=== PATIENT | male | born 1995 | race Caucasian/White ===

== ENCOUNTER → 2018-01-26 16:01 | Outpatient (CLI) | payer BC, SELFPAY ==
[2018-01-26 17:39] LABS: ALB/GLOB Ratio 1.1 RATIO (0.9-2.4); AST(SGOT) 9 U/L (15-37); Alanine Aminotransfer ALT/SGPT 15 U/L (16-61); Alkaline Phosphatase 62 U/L (45-117); Anion Gap 6 (5-15); BUN 6 mg/dL (7-18); BUN/Creat Ratio 8.1 RATIO (10-20); Calcium,Total 8.8 mg/dL (8.5-10.1); Chloride 106 mmol/L (98-107); Creatinine, Serum 0.74 mg/dL (0.70-1.30); EST Glomerular Filtration Rate 141 mL/min (>60); Est Glom Filt Rate - Afr Amer 171 mL/min (>60); Free T3 3.2 pg/mL (2.18-3.98); Globulin 3.5 g/dL (2.2-4.2); Glucose 69 mg/dL (74-106); Phosphorus 3.3 mg/dL (2.5-4.9); Potassium 4.2 mmol/L (3.5-5.1); Protein, Total 7.5 g/dL (6.4-8.2); Sodium Level 140 mmol/L (136-145); T4 Free Direct 1.14 ng/dL (0.76-1.46); Thyroid Stim Hormone (TSH) 3.08 uIU/mL (0.358-3.74)
[2018-01-26 17:56] LABS: Valproic Acid (Depakene) Level 171 ug/mL (50-100)
== END ==
PROVIDERS: Family Provider Family Medicine; PCP Family Medicine; Visit Provider Nurse Practitioner Acute Care
DX: R56.9 Unspecified convulsions (principal); E03.9 Hypothyroidism, unspecified
CPT/HCPCS: 36415; 80053; 80164; 83735; 84100; 84439; 84443; 84481

== ENCOUNTER → 2018-02-06 09:19 | Outpatient (CLI) | payer BC, SELFPAY ==
--- NOTE | 2018-02-06 11:06 | EEG ---
- Electroencephalogram [facility] is an 18 channel eeg performed utilizing the international 10-20 electrode. Placement protocol on this 22-year-old male with a history of seizures. The patient currently is on Depakote. Background activity is 9 Hz symmetrically in the posterior leads which attenuates with eye opening. Patient remained awake throughout the recording. Hyperventilation, EKG reference leads and photic stimulation also were performed. Hyperventilation is performed for 3 minutes with good effort with no lateralizing or epileptiform changes. The post hyperventilatory phase was unremarkable. The patient remained awake throughout the recording with no lateralizing or epileptiform changes. Photic stimulation demonstrates a normal symmetric driving response in the posterior leads and EKG reference leads are normal sinus rhythm throughout the recording. Impression: Normal awake electroencephalogram.
--- NOTE | 2018-02-06 11:09 | EEG_ITS ---
- [facility] is an 18 channel eeg performed utilizing the international 10-20 electrode. Placement protocol on this 22-year-old male with a history of seizures. The patient currently is on Depakote. Background activity is 9 Hz symmetrically in the posterior leads which attenuates with eye opening. Patient remained awake throughout the recording. Hyperventilation, EKG reference leads and photic stimulation also were performed. Hyperventilation is performed for 3 minutes with good effort with no lateralizing or epileptiform changes. The post hyperventilatory phase was unremarkable. The patient remained awake throughout the recording with no lateralizing or epileptiform changes. Photic stimulation demonstrates a normal symmetric driving response in the posterior leads and EKG reference leads are normal sinus rhythm throughout the recording. Impression: Normal awake electroencephalogram.
== END ==
PROVIDERS: Family Provider Family Medicine; PCP Family Medicine; Visit Provider Nurse Practitioner Acute Care
DX: R56.9 Unspecified convulsions (principal)

== ENCOUNTER 2018-06-15 15:14 | Emergency (ER) | payer OTHER, BC, SELFPAY ==
[2018-06-15 15:15] VITALS: BP 111/88; PULSE 89; RESP 18; TEMP 36.8; O2SAT 99; BMI 21.0
--- NOTE | 2018-06-15 15:49 | ED.DCSUM_ITS ---
- ER Visit Summary Date of Service: 06/15/18 Chief Complaint: right back injury History of Present Illness: The patient is a 22 M who presents for a back injury that occurred at work yesterday afternoon. Patient was lifting a box and pivoted, with sudden onset of right lower back pain. The pain is sharp and aching, worse with movement and walking. It is improved by sitting. Patient got mild relief from ibuprofen. He denies any numbness or weakness in the legs. No urinary or bowel incontinence or retention. No numbness in the groin region. No other complaints. Physical Examination: Vital signs: afebrile, hemodynamically stable, no hypoxia on room air General: well nourished, well developed, in no distress Skin: warm, dry, no rash, no pallor HEENT: normocephalic and atraumatic; PERRL, EOMI, moist mucous membranes Cardiovascular: regular rate and rhythm without murmurs, no peripheral edema, 2+ pulses all distal extremities Respiratory: No increased work of breathing, lungs are clear to auscultation bilaterally, no rales, rhonchi or wheezing Abdominal: Abdomen is soft, nontender with normoactive bowel sounds, no guarding or rebound, no masses Back: Patient has no midline tenderness in the cervical, thoracic or lumbar spinal region. No deformities or step-offs. Tenderness to palpation of the right paraspinal musculature in the lower thoracic and upper lumbar region with more prominence and firmness of the musculature when compared to the left. Muscle tender to palpation. Straight leg raise is negative bilaterally. MSK: Moves all extremities, no deformities, normal strength Neuro: Awake and alert, oriented ?4. No facial droop, sensation and motor funct ion intact and symmetric gait Test Results: [] Emergency Department Course and Treatment: Patient's presentation is consistent with a right thoracolumbar strain. Patient will take [id number] naproxen or ibuprofen as needed for pain. He is not to use the medication if he is working, driving or doing anything else dangerous. He was given a prescription for Flexeril to help with muscle spasm. Worker's Comp. paperwork was filled out. She discharged home. Treatment Plan: [] Disposition: [] Impression: right thoracolumbar strain This note was generated with Whereation software. It may contain incorrect words, spelling, and punctuation that were not noted in review of the chart prior to signing ED Disposition - Plan for ED Patient: Disposition: Home or Assisted Living Chief Complaint: Back Instructions: ED Low Back Pain Injury, ED Sprain Strain Lumbar Prescriptions: Cyclobenzaprine [Flexeril] 5 - 10 mg PO TID PRN #20 tab PRN Reason: Muscle Spasm [facility] [GROUP OF PHYSICIANS] - 1 Day Wendy Hanks MD [Primary Care Provider] - 3-5 Days if not improving Additional Instructions: Please follow-up with your workers comp department as instructed by your employer. Use ibuprofen or naproxen as needed for pain. You may use the Flexeril for back spasm, but do not use it while working or driving. If you have any worsening of your condition or any new concerning symptoms, please return immediately to the emergency department for another evaluation.
[2018-06-15 16:02] VITALS: BP 113/74; PULSE 68; RESP 15; O2SAT 98
== END 2018-06-15 16:05 | disposition home or self-care (01) ==
PROVIDERS: Emergency Provider Emergency Medicine; Family Provider Family Medicine; PCP Family Medicine
DX: S39.012A Strain of muscle, fascia and tendon of lower back, initial encounter (principal); E07.9 Disorder of thyroid, unspecified; G40.909 Epilepsy, unspecified, not intractable, without status epilepticus; Z79.899 Other long term (current) drug therapy; X50.9XXA Other and unspecified overexertion or strenuous movements or postures, initial encounter; Y93.89 Activity, other specified; Y92.89 Other specified places as the place of occurrence of the external cause; Y99.0 Civilian activity done for income or pay
CPT/HCPCS: 99282

== ENCOUNTER → 2018-10-16 13:48 | Outpatient (CLI) | payer BC, SELFPAY ==
[2018-06-29 15:36] VITALS: BMI 21.0
[2018-10-16 14:46] LABS: Valproic Acid (Depakene) Level 74 ug/mL (50-100)
== END ==
PROVIDERS: Family Provider Family Medicine; PCP Family Medicine; Referring Provider Psychiatry & Neurology Neurology; Visit Provider Psychiatry & Neurology Neurology
DX: R56.9 Unspecified convulsions (principal)
CPT/HCPCS: 36415; 80164

== ENCOUNTER → 2018-12-12 12:48 | Outpatient (CLI) | payer BC, SELFPAY ==
[2018-06-29 15:36] VITALS: BMI 21.0
[2018-12-12 14:35] LABS: Valproic Acid (Depakene) Level 78 ug/mL (50-100)
[2018-12-12 14:54] LABS: AST(SGOT) 13 U/L (15-37); Alanine Aminotransfer ALT/SGPT 18 U/L (16-61); Albumin, Serum 3.8 g/dL (3.2-5.0); Alkaline Phosphatase 55 U/L (45-117); Bilirubin, Direct < 0.05 mg/dL (0.00-0.30); Globulin 3.1 g/dL (2.2-4.2); Protein, Total 6.9 g/dL (6.4-8.2)
== END ==
PROVIDERS: Family Provider Family Medicine; PCP Family Medicine; Referring Provider Nurse Practitioner Family; Visit Provider Nurse Practitioner Family
DX: R56.9 Unspecified convulsions (principal)
CPT/HCPCS: 36415; 80076; 80164

== ENCOUNTER → 2019-05-25 | Outpatient (CLI) | payer OTHER, SELFPAY ==
[2018-06-29 15:36] VITALS: BMI 21.0
[2019-05-25 12:13] LABS: Absolute Lymphocyte Count 2.95 X10^3/uL (0.83-4.51); Absolute Neutrophil Count 4.5 X10^3/uL (2.0-7.7); Basophil# 0.03 X10^3/uL; Basophil% 0.4 % (0-1); Eosinophil# 0.16 X10^3/uL; Eosinophils% 1.9 % (0-5); Hematocrit 45.4 % (40-54); Hemoglobin 15.4 g/dL (13.0-16.5); Lymphocyte # 2.95 X10^3/ul (4.0); Lymphocyte % 34.5 % (19-41); Mean Corp Hgb Conc 33.9 g/dL (32-36); Mean Corpuscular Hgb 34.7 pg (27.0-32.0); Mean Corpuscular Volume 102.3 fL (80-94); Mean Platelet Vol. 10.6 fl (6.2-12.0); Monocyte# 0.86 X10^3/uL; Monocyte% 10.1 % (0-10); NRBC Flagged by Analyzer 0 % (0-5); Neutrophil # 4.52 X10^3/uL (2.7-7.7); Neutrophil % 52.7 % (47-70); Platelet Count 236 K/mm3 (150-450); RBC Distribution Width CV 12.3 % (11.6-14.6); RBC Distribution Width SD 46.7 fl (35.1-43.9); Red Blood Count 4.44 M/mm3 (4.6-6.2); White Blood Count 8.6 K/mm3 (4.4-11.0)
[2019-05-25 12:52] LABS: Valproic Acid (Depakene) Level 44 ug/mL (50-100)
[2019-05-25 13:01] LABS: AST(SGOT) 16 U/L (15-37); Alanine Aminotransfer ALT/SGPT 24 U/L (16-61); Albumin, Serum 3.9 g/dL (3.2-5.0); Alkaline Phosphatase 52 U/L (45-117); Bilirubin, Direct < 0.05 mg/dL (0.00-0.30); Globulin 3.1 g/dL (2.2-4.2)
== END | disposition home or self-care (01) ==
PROVIDERS: Family Provider Family Medicine; PCP Family Medicine; Referring Provider Nurse Practitioner Family; Visit Provider Nurse Practitioner Family
DX: R56.9 Unspecified convulsions (principal)
CPT/HCPCS: 36415; 80076; 80164; 82140; 85025

== ENCOUNTER 2023-05-16 23:39 | Emergency (ER) | payer BC, SELFPAY ==
[2023-05-16 23:42] VITALS: PULSE 82; RESP 18; TEMP 36.8; O2SAT 96; BMI 22.6
--- NOTE | 2023-05-17 00:01 | EX.ED.DYSGE1 ---
HPI History of Present Illness Chief Complaint: Seizure Detail of Chief Complaint: Seizure Informant: patient Narrative Narrative: Patient presents the emergency department after having a seizure. Brought in by EMS. 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 Patient does have history of seizures but stopped taking his seizure medicine 2-1/2 to 3 years ago. Patient states that normally before seizure his hands will get numb and tingly and he had that sensation before he left for work. Denies recent illness. Unsure of his last tetanus shot. During the fall he did sustain a laceration above his left eye. [facility] Medical History (Updated 05/17/23 @ 01:[address] Micki Mejia, DO) Back pain Knee pain Seizures Thyroid disease Home Medications divalproex 500 mg tablet,delayed release 1,500 mg PO BREAKFAST 06/15/18 [History Last Taken Unknown] divalproex 500 mg tablet,delayed release 2,000 mg PO QHS 06/15/18 [History Last Taken Unknown] divalproex 500 mg tablet,extended release 24 hr (Depakote ER) 500 mg PO BID #60 tabs 05/17/23 [Rx Last Taken Unknown] Allergy/AdvReac Type Severity Reaction Status Date / Time No Known Allergies Allergy Verified 06/29/18 15:25 Social History (Updated 06/29/18 @ 15:36 by Cristino AMAYA, PA) Smoking Status: Current every day smoker tobacco type: e-cigarettes alcohol intake: never ROS ROS ED Review of Systems ROS Unobtainable: other Constitutional Constitutional ED: Reports lethargy; Denies chills, fever(s), sweats or weight loss Eyes Eyes: Denies blurry vision, change in vision or diplopia ENT ENT ED: Reports other Details: Laceration left upper eyelid ; Denies rhinorrhea or sore throat Cardiovascular Cardiovascular: Denies chest pain, orthopnea or racing heartbeat Respiratory/Chest Respiratory/Chest: Denies cough, dyspnea, dyspnea on exertion, orthopnea or sputum Gastrointestinal Gastrointestinal: Denies abdominal pain, diarrhea, nausea or vomiting Genitourinary Genitourinary ED: Denies dysuria, hematuria or urinary frequency Musculoskeletal Musculoskeletal: Denies arthralgias, back pain, myalgias or neck pain Integumentary Denies abscess, Abrasions or rash Neurologic Neurologic: Reports other Details: Seizure ; Denies headache(s) or weakness Psychiatric Psychiatric: Denies anxiety, depression or suicidal thoughts Endocrine Endocrinology: Denies polydipsia, polyphagia or polyuria Hematologic/Lymphatic Hematologic/Lymphatic: Denies easy bleeding, easy bruising or lymphadenopathy Allergic/Immunologic Allergic/Immunologic ED: Denies mouth swelling, tongue swelling or urticaria EXAM Physical Exam Const Vital Signs: 05/16/23 23:42 Temperature 98.3 F Temperature Source Oral Pulse Rate 82 Respiratory Rate 18 Pulse Ox 96 Oxygen Delivery Method Room Air Positive well nourished and well developed General Appearance ED: well developed and NAD HEENT Reports TM's clear and moist mucous membranes HEENT Narrative: Patient has ecchymosis and bruising over the left upper eyelid with some tenderness over the superior aspect of the orbit. Patient has a 1 cm laceration to the upper eyelid with bruising. No evidence of trauma to the globe. Extraocular muscle motion is normal and painless. normocephalic and atraumatic; Negative for trauma or tenderness Tympanic Membrane ED: Yes TM's clear Eyes PERRL and EOMs intact bilaterally General Eye ED: Negative for pale conjunctiva or scleral icterus Neck no lymphadenopathy, supple and no JVD General: Negative for tenderness Chest Wall inspection of chest normal and palpation of chest normal Chest: Negative for tenderness Resp normal respiratory effort and clear to auscultation bilaterally Effort and Inspection: Negative for respiratory distress or pain with movement Auscultation: Negative for rhonchi, wheezes or diminished lung sounds Cardio regular rate, regular rhythm, S1 normal heart sound, S2 normal heart sound and no murmurs Peripheral Pulses: pulses 2+ throughout GI normal to inspection, nondistended, normoactive bowel sounds, soft to palpation, non-tender, non-distended and no masses Back/Spine no CVA tenderness and no thoracic nor lumbar tenderness Extremity normal to inspection General Extremety ED: Negative for edema General Extremity: Negative for edema Neuro oriented x3, CN's II-XII intact bilaterally, no sensory deficits noted and gait normal Sensorium / Orientation: awake, alert, oriented to person, oriented to place and oriented to time Motor Exam: strength 5/5 throughout and strength abnormal Psych mental status grossly normal Skin no rashes or lesions noted and no wounds MDM MDM MDM Narrative Medical decision making narrative: Patient presents with seizure with history of recurrent seizure been off medications for about 2 and half years. He did have a head injury with laceration to the upper eyelid on the left. IV line established. Patient placed on a pvc monitor. CT scan of the brain without contrast showed soft tissue swelling over the left orbit with a foreign body that was a small rock that I was able to remove during laceration repair. No orbit fractures noted no intracranial hemorrhage noted. Patient was started on Depakote 1000 mg p.o. Basic labs unremarkable. I will refer him to neurology Dr. Dunne for follow-up. I will give him a prescription for Depakote. Patient advised not to drive until he follows up with neurology. Lab Data Labs: Laboratory Results - last 24 hr 05/17/23 00:31 WBC 11.8 H RBC 4.40 L Hgb 14.7 Hct 45.2 MCV 102.7 H MCH 33.4 H MCHC 32.5 RDW Std Deviation 44.6 H RDW Coeff of Jennifer 11.9 Plt Count 262 MPV 9.4 Immature Gran % (Auto) 0.400 Neut % (Auto) 74.8 H Lymph % (Auto) 16.[address] [place] % (Auto) 7.4 Eos % (Auto) 0.5 Baso % (Auto) 0.3 Absolute Neuts (auto) 8.9 H Absolute Lymphs (auto) 1.96 Nucleated RBC % 0 Sodium 141 Potassium 4.4 Chloride 110 H Carbon Dioxide 28.0 Anion Gap 3 L BUN 7 Creatinine 0.78 Estim Creat Clear Calc 149.00 Est GFR (MDRD) Af Amer 153 Est GFR (MDRD) Non-Af 127 BUN/Creatinine Ratio 9.0 L Glucose 109 H Calcium 8.8 Total Bilirubin 0.40 AST 21 ALT 37 Alkaline Phosphatase 67 Total Protein 7.2 Albumin 4.1 Globulin 3.1 Albumin/Globulin Ratio 1.3 Radiography Diagnostic Testing: Clinical Impression(s) from Imaging Studies Brain CT 05/17/23 23:59 IMPRESSION: No acute intracranial pathology or acute calvarial fracture. Left preseptal periorbital hematoma with intact globe and normal retrobulbar soft tissues with 3 mm metallic density foreign body at the surface of the hematoma. AIDOC was utilized to assist in identifying pertinent positive findings. Electronically Signed: Prasad Mora MD at 2:03 EDT , Procedures Lacerations Left upper eyelid laceration: Length: 0.39 in Depth: Sub Q Shape: Linear Prep: Sterile Conditions and Shure-Clens Laceration repair: Lidocaine, Local and Skin sutures Irrigated (ml): 50 Number of Sutures/Artur: 2 Suture Information: Ethilon and 6-0 Comment: Patient had a small pebble foreign body in the upper eyelid that I was able to easily remove with forceps. Patient tolerated procedure well. Discharge Plan Triage Chief Complaint: Seizure ED Provider: Micki Mejia Dx/Rx/DC Orders Clinical Impression: Seizure, Eyelid laceration Instructions: ED Laceration: All Closures, ED Seizure, Recurrent (Adult) Prescriptions: New divalproex [Depakote ER] 500 mg tablet extended release 24 hr 500 mg PO BID Qty: 60 0RF No Action divalproex 500 MG tablet,delayed release (DR/EC) 1,500 mg PO BREAKFAST divalproex 500 MG tablet,delayed release (DR/EC) 2,000 mg PO QHS Primary Care Provider: Care Physician,No Primary Referrals: Wendy Hanks MD [Med Staff - [employer] Field Supervisor] - Fabián Baptiste MD [Non-Staff -Ordering Privileges] - 3-5 Days Disposition Disposition: Home, Self Care
[2023-05-17 00:39] LABS: Absolute Lymphocyte Count 1.96 X10^3/uL (0.83-4.51); Absolute Neutrophil Count 8.9 X10^3/uL (2.0-7.7); Basophil# 0.03 X10^3/uL; Basophil% 0.3 % (0-1); Eosinophil# 0.06 X10^3/uL; Eosinophils% 0.5 % (0-5); Hematocrit 45.2 % (40-54); Hemoglobin 14.7 g/dL (13.0-16.5); Lymphocyte # 1.96 X10^3/ul (0.83-4.51); Lymphocyte % 16.6 % (19-41); Mean Corp Hgb Conc 32.5 g/dL (32-36); Mean Corpuscular Hgb 33.4 pg (27.0-32.0); Mean Corpuscular Volume 102.7 fL (80-94); Mean Platelet Vol. 9.4 fl (6.2-12.0); Monocyte# 0.88 X10^3/uL; Monocyte% 7.4 % (0-10); NRBC Flagged by Analyzer 0 % (0-5); Neutrophil # 8.85 X10^3/uL (2.7-7.7); Neutrophil % 74.8 % (47-70); Platelet Count 262 K/mm3 (150-450); RBC Distribution Width CV 11.9 % (11.6-14.6); RBC Distribution Width SD 44.6 fl (35.1-43.9); White Blood Count 11.8 K/mm3 (4.4-11.0)
[2023-05-17 00:59] LABS: ALB/GLOB Ratio 1.3 RATIO (0.9-2.4); AST(SGOT) 21 U/L (15-37); Alanine Aminotransfer ALT/SGPT 37 U/L (16-61); Albumin, Serum 4.1 g/dL (3.2-5.0); Alkaline Phosphatase 67 U/L (45-117); Anion Gap 3 (5-15); BUN 7 mg/dL (7-18); Calcium,Total 8.8 mg/dL (8.5-10.1); Chloride 110 mmol/L (98-107); Creatinine, Serum 0.78 mg/dL (0.70-1.30); EST Glomerular Filtration Rate 127 mL/min (>60); Est Glom Filt Rate - Afr Amer 153 mL/min (>60); Globulin 3.1 g/dL (2.2-4.2); Glucose 109 mg/dL (74-106); Potassium 4.4 mmol/L (3.5-5.1); Protein, Total 7.2 g/dL (6.4-8.2); Sodium Level 141 mmol/L (136-145)
[2023-05-17] MEDS: Lidocaine/Epi/Tetracaine 50 ML 1 APPLIC TOPICAL (01:22)
[2023-05-17] MEDS: Diphth,Pertuss(Acell),Tet Vac 0.5 ML Vial IM (01:22)
[2023-05-17] MEDS: Divalproex (ER) 500 MG Tablet 1000 MG PO (01:46)
[2023-05-17 02:28] VITALS: BP 110/65; PULSE 74; RESP 12; TEMP 36.8; O2SAT 98
--- NOTE | 2023-05-17 23:59 | CT_ITS ---
EXAM: CT HEAD WITHOUT INTRAVENOUS CONTRAST CLINICAL INDICATION: head injury, seizure TECHNIQUE: Multiple axial images were obtained of the head without intravenous contrast. CTDIvol = ( 44.99 ) mGy, DLP = ( 812.98 ) mGycm This CT exam was performed using one or more of the following dose reduction techniques: automated exposure control, adjustment of the mA and/or kV according to patient size, and/or use of iterative reconstruction technique. COMPARISON: No relevant prior studies available. FINDINGS: BRAIN AND EXTRA-AXIAL SPACES: Unremarkable. No intra- or extra-axial hemorrhage. No evidence of acute infarct. No intracranial mass or mass effect. There is preservation of the kapoor/white matter interface. Posterior fossa structures are unremarkable. Ventricles are appropriate for age. No hydrocephalus. Basal cisterns are patent. BONES/JOINTS: Unremarkable. No discrete lytic or blastic abnormalities. SOFT TISSUES: Left periorbital preseptal hematoma with intact globe and normal retrobulbar soft tissues. Metallic density 3 mm foreign body surface of the hematoma. SINUSES: Multiple mucous retention cysts and scattered paranasal sinus mucosal thickening. No air-fluid levels involving the paranasal sinuses. MASTOID AIR CELLS: Mastoid air cells are clear. ORBITS: Visualized globes, extraocular muscles, optic nerves and retrobulbar fat appear unremarkable. CT/Brain/Head without Contrast IMPRESSION: No acute intracranial pathology or acute calvarial fracture. Left preseptal periorbital hematoma with intact globe and normal retrobulbar soft tissues with 3 mm metallic density foreign body at the surface of the hematoma. AIDOC was utilized to assist in identifying pertinent positive findings. Electronically Signed: Prasad Mora MD at 2:03 EDT ,
== END 2023-05-17 03:05 | disposition home or self-care (01) ==
PROVIDERS: Emergency Provider Emergency Medicine; Visit Provider Emergency Medicine
DX: R56.9 Unspecified convulsions (principal); S01.112A Laceration without foreign body of left eyelid and periocular area, initial encounter; F17.290 Nicotine dependence, other tobacco product, uncomplicated; Z23 Encounter for immunization; W19.XXXA Unspecified fall, initial encounter
CPT/HCPCS: 12011; 70450; 80053; 85025; 90471; 90715; 99285; A4216